=== PATIENT | male | born 1955 | race Hispanic/Latino ===

== ENCOUNTER 2019-06-10 18:50 | Inpatient (IN) | payer OTHER ==
[~2019-06-10] VITALS: Ht 182.9 cm; Wt 135.8 kg
[2019-06-10] MEDS ORDERED: VANCOMYCIN 1GM/NS 250 ML 250 ML IV NR (19:19)
[2019-06-10] MEDS ORDERED: ONDANSETRON HCL INJ 2MG/ML 2ML 2 MG/ML VIAL IV STA (19:26)
[2019-06-10 19:44] LABS: BASOPHILS % 0.4 % (0.0-1.0); EOSINOPHILS # (AUTO) 0.2 (0.0-0.4); EOSINOPHILS % 2.1 % (0.0-6.0); HEMATOCRIT 38.5 % (38.2-49.6); HEMOGLOBIN 12.9 g/dL (14.0-18.0); LYMPHOCYTES # (AUTO) 2.1 (1.0-3.2); LYMPHOCYTES % 20.4 % (18.0-39.1); MEAN CORPUSCULAR HEMOGLOBIN 30.1 pg (28-32); MEAN CORPUSCULAR HGB CONC 33.5 g/dL (31-35); MONOCYTES # (AUTO) 0.9 (0.2-0.8); NEUTROPHILS # (AUTO) 7.1 (2.1-6.9); NEUTROPHILS % 67.7 % (38.7-80.0); PLATELET COUNT 301 x10e3/uL (140-360); RED BLOOD COUNT 4.28 x10e6/uL (4.3-5.7)
[2019-06-10] MEDS: MORPHINE SULFATE INJ 4 MG/ML INJ 1ML IV PRN ×2 (19:51→23:07)
[2019-06-10 20:00] LABS: ALANINE AMINOTRANSFERASE 33 IU/L (0-55); ALBUMIN 3.5 g/dL (3.5-5.0); ALBUMIN/GLOBULIN RATIO 0.9 (0.8-2.0); ALKALINE PHOSPHATASE 120 IU/L (40-150); ANION GAP 17.8 mmol/L (8-16); BLOOD UREA NITROGEN 17 mg/dL (7-26); BUN/CREATININE RATIO 18 (6-25); CARBON DIOXIDE 25 mmol/L (22-29); CHLORIDE 100 mmol/L (98-107); CREATININE, SERUM 0.96 mg/dL (0.72-1.25); EST GLOMERULAR FILTRATION RATE > 60 ML/MIN (60-); GLUCOSE 157 mg/dL (74-118); POTASSIUM 3.8 mmol/L (3.5-5.1); SODIUM 139 mmol/L (136-145)
[2019-06-10] MEDS ORDERED: ONDANSETRON HCL INJ 2MG/ML 2ML 2 MG/ML VIAL IV PRN (20:30)
[2019-06-10] MEDS: CLINDAMYCIN 600MG / 50ML 50 ML IV SCH (20:49)
[2019-06-10] MEDS: SODIUM CHLORIDE 0.9% 1000ML 1,000 ML IV SCH (23:07)
--- NOTE | 2019-06-10 23:48 | Diagnostic Imaging Report ---
X-ray right hand 3 views HISTORY: Pain. COMPARISON: None available. FINDINGS: Bones: No acute displaced fracture. Osseous alignment is within normal limits. Joints: Scattered degenerative changes. No dislocations. Soft tissues: Soft tissue swelling about the hand and fingers. Vascular calcifications. IMPRESSION: No acute radiographic osseous abnormality. No foreign body. Soft tissue swelling about the hand and fingers. Scattered degenerative changes. Signed by: Jose Maradiaga DO on 06/10/2019 11:45 PM
[2019-06-11] MEDS: SODIUM CHLORIDE 0.9% 1000ML 1,000 ML IV SCH ×3 (06:46→20:17)
[2019-06-11 07:12] LABS: BASOPHILS % 0.3 % (0.0-1.0); EOSINOPHILS % 0.4 % (0.0-6.0); HEMATOCRIT 39.1 % (38.2-49.6); HEMOGLOBIN 12.5 g/dL (14.0-18.0); LYMPHOCYTES # (AUTO) 1.6 (1.0-3.2); LYMPHOCYTES % 13.8 % (18.0-39.1); MEAN CORPUSCULAR HEMOGLOBIN 29.8 pg (28-32); MEAN CORPUSCULAR VOLUME 93.1 fL (81-99); MONOCYTES # (AUTO) 1.4 (0.2-0.8); MONOCYTES % 11.9 % (4.4-11.3); NEUTROPHILS # (AUTO) 8.3 (2.1-6.9); NEUTROPHILS % 73.1 % (38.7-80.0); PLATELET COUNT 269 x10e3/uL (140-360); RED CELL DISTRIBUTION WIDTH 13.1 % (11.7-14.4)
[2019-06-11 07:36] LABS: ANION GAP 15.3 mmol/L (8-16); BLOOD UREA NITROGEN 13 mg/dL (7-26); BUN/CREATININE RATIO 15 (6-25); CALCIUM 8.8 mg/dL (8.4-10.2); CARBON DIOXIDE 26 mmol/L (22-29); CHLORIDE 100 mmol/L (98-107); CREATININE, SERUM 0.88 mg/dL (0.72-1.25); EST GLOMERULAR FILTRATION RATE > 60 ML/MIN (60-); GLUCOSE 142 mg/dL (74-118); POTASSIUM 4.3 mmol/L (3.5-5.1); SODIUM 137 mmol/L (136-145)
[2019-06-11] MEDS: MORPHINE SULFATE INJ 4 MG/ML INJ 1ML IV PRN ×3 (08:04→19:45)
[2019-06-11] MEDS: VANCOMYCIN 1GM/NS 250 ML 250 ML IV SCH ×2 (09:05→22:02)
--- NOTE | 2019-06-11 09:58 | Diagnostic Imaging Report ---
EXAM: CT right hand WITHOUT contrast INDICATION: Cellulitis. Swelling. Pain COMPARISON: June 10, 2019 TECHNIQUE: Right hand was scanned utilizing a multidetector helical scanner without administration of IV contrast. Absence of intravenous contrast decreases sensitivity for detection of focal lesions and vascular pathology. Coronal and sagittal reformations were obtained. Routine protocol was performed. IV CONTRAST: None ORAL CONTRAST: None COMPLICATIONS: None RADIATION DOSE: Total DLP: 135 mGy*cm Estimated effective dose: (DLP x 0.015 x size factor) mSv CTDIvol has been reviewed. It is below the limits set by the Radiation Protocol Committee (RPC). Dose modulation, iterative reconstruction, and/or weight based adjustment of the mA/kV was utilized to reduce the radiation dose to as low as reasonably achievable. FINDINGS: No acute fracture, dislocation or evidence of avascular necrosis. Mild scattered degenerative change. No osseous erosion. Small bone fragments at the dorsal aspect of the hand at the level of the proximal third metacarpal likely due to carpal bossing as seen on series 5 image 124 through 129. Moderate soft tissue edema about the hand most pronounced dorsally could be due to cellulitis in the appropriate clinical context. No well-formed drainable fluid collection is seen. No radiopaque foreign body is seen. Scattered vascular calcification. Impression: Moderate soft tissue edema about the hand most pronounced dorsally could be due to cellulitis in the appropriate clinical context. No well-formed drainable fluid collection is seen. Signed by: Dr. Dayton Stack M.D. on 06/11/2019 9:56 AM
[2019-06-11] MEDS: CEFEPIME 2 GM/NS 0.9% 100 ML 100 ML IV SCH ×2 (13:46→17:49)
--- NOTE | 2019-06-11 14:15 | NUR ---
PT RECEIVED FROM ER. RAINEY. EDUCATED PT ABOUT FALL PRECAUTIONS. CALL LIGHT WITH IN EASY REACH. INSTRUCTED PT TO USE CALL LIGHT FOR ALL THE NEEDS. PT VERBALIZED UNDERSTANDING. BED IS LOW AND LOCKED. SIDE RAILS X2. PT DENIES NEEDS AT THIS TIME.
--- NOTE | 2019-06-11 14:20 | History and Physical ---
CHIEF COMPLAINT: Right hand pain, swelling since last 3 days. HISTORY OF PRESENT MEDICAL ILLNESS: A 64-year-old pleasant male with no significant past medical history, was admitted at [facility] with above complaint. The patient was seen in my office yesterday afternoon with above complaints. As per the patient, about 3 days back, he got poked by a deer bone on the tip of his right hand finger and since then, the right hand pain, swelling and redness, started progressively getting worse and hence, the patient came to my office yesterday afternoon. The patient was referred to ER for further care and treatment. At present, the patient is lying comfortably in bed, in no apparent distress. No chest pain. No shortness of breath. No nausea, vomiting, or diarrhea. No abdominal pain. No loss of consciousness. No palpitations. No headaches. No hematemesis. No melena. No hematuria or dysuria. No fever. No cough. No witnessed seizures. PAST MEDICAL HISTORY: None. MEDICATIONS: None. ALLERGIES: NO KNOWN DRUG ALLERGIES. PAST SURGICAL HISTORY: None. SOCIAL HISTORY: No smoking, alcohol +6 pegs per day. No illicit drug use. Lives with family. FAMILY HISTORY: Noncontributory. REVIEW OF SYSTEMS: As per HPI. PHYSICAL EXAMINATION: GENERAL: The patient is alert, awake, and oriented x3, in no apparent distress, sitting in chair. VITAL SIGNS: Temperature is 98, pulse is 90 per minute, respiratory rate 18 per minute, blood pressure is 159/86, and saturation is 99%. SKIN: No cyanosis. No icterus. No pallor. HEENT: Normocephalic and atraumatic. PERRLA plus. NECK: Soft, supple. No JVD. No carotid bruit. No lymphadenopathy. LUNGS: Air entry bilaterally equal. HEART: S1, S2. No murmur, gallop, or rub. ABDOMEN: Soft and nontender. Bowel sounds plus. TOOL MECHANIC: Alert, awake, and oriented x3. No focal deficit. EXTREMITIES: No cyanosis. No clubbing. No edema. Peripheral pulses present. No calf pain. Right hand, severe swelling, tenderness plus. LABORATORY DATA: Sodium 137, potassium 4.3, chloride 100, bicarb 26, BUN 13, creatinine 0.8, glucose 154 and 142. White count 11.3, hemoglobin 12.5, hematocrit 39, and platelets 269. X-ray hand, no acute radiographic abnormality. No foreign body. Soft tissue swelling about the hand and fingers. Scattered degenerative changes. ASSESSMENT: Severe right hand cellulitis. PLAN: Admit the patient to medical floor, IV vancomycin and IV clindamycin, panculture. Infectious Disease consult, Dr. Sharma. Hand surgeon, Dr. Calabrese consult. We will get CT of right hand for the pain management. Further care and treatment as per clinical course of the patient in the hospital. MD ISELA Terry/MODL /[id number]
[2019-06-11 15:00] VITALS: BP 174/94
[2019-06-11 15:49] VITALS: BP 134/94
[2019-06-11 15:55] VITALS: BP 164/94
--- NOTE | 2019-06-11 16:00 | NUR ---
PAGED DR. HERZOG REGARDING PT TEMP 100.5 AND BP 164/94. WAITING FOR THE RESPONSE FROM THE
[2019-06-11] MEDS: AMLODIPINE BESYLATE 5 MG TAB PO SCH (16:37)
[2019-06-11] MEDS: ACETAMINOPHEN 325 MG TAB PO PRN (16:38)
--- NOTE | 2019-06-11 17:26 | Consultation ---
DATE OF CONSULTATION: REASON FOR CONSULTATION: Cellulitis of the right hand. HISTORY OF PRESENT ILLNESS: This patient, who is a very pleasant 64-year-old male with history of obesity, hypertension. He was skinning a deer 3 days ago with bone injury to his right middle finger, started to have redness and swelling in his hand, going all the way up to his arm and shoulder, not feeling well, with pain, fever, and chills. The patient came to the emergency room where he was admitted. I was asked to see him. PAST MEDICAL HISTORY: Otherwise, as above. PAST SURGICAL HISTORY: Otherwise, as above. SOCIAL HISTORY: There is no smoking, drug abuse, or alcohol abuse. FAMILY HISTORY: Otherwise unremarkable. REVIEW OF SYSTEMS: HEENT: There is no headache, visual changes, or hearing changes. GI: There is no nausea. No vomiting. No diarrhea. CARDIAC: There is no arrhythmia. NEURO: No seizure activity. SKIN: There are no rashes. PHYSICAL EXAMINATION: GENERAL: He is currently alert, oriented, does not seem to be in acute distress. VITAL SIGNS: Stable, currently afebrile. HEENT: Not icteric. NECK: Supple. No JVD. No lymphadenopathy, no thyromegaly. CHEST: Clear bilateral. HEART: S1, S2. No S3, S4, or murmur. ABDOMEN: Soft. Bowel sounds present. No tenderness. No hepatosplenomegaly. EXTREMITIES: Hand, there is erythema and edema involving all the way to the shoulder. No bullous lesions. IMPRESSION: Cellulitis of the hand and arm after injury with bone from skinning a deer, pathogen be gram-negative Pseudomonas, Aeromonas, gram-positive Staph aureus and MRSA. RECOMMENDATIONS: Agree with vancomycin. We will adjust per his weight. We will get a MRI of the hand. We will keep the arm elevated. Follow vancomycin trough. We will obtain blood cultures. Consider evaluation by Hand Surgery, Plastic surgery. We will discuss with Dr. Duke. MD ANNIE Miramontes/EREN /[id number]
--- NOTE | 2019-06-11 18:59 | NUR ---
BEDSIDE SHIFT REPORT GIVEN TO THE ROUSTABOUT HEAD RN. PT DENIED FURTHER NEEDS.
[2019-06-11 19:18] VITALS: BP 166/87
[2019-06-11 21:00] VITALS: BP 166/87
[2019-06-11] MEDS: CLINDAMYCIN 600MG / 50ML 50 ML IV SCH (21:18)
[2019-06-12] VITALS (8 sets, daily range): BP systolic 146–178; BP diastolic 71–88
[2019-06-12] MEDS: CEFEPIME 2 GM/NS 0.9% 100 ML 100 ML IV SCH ×3 (02:32→17:04)
[2019-06-12] MEDS: ACETAMINOPHEN 325 MG TAB PO PRN (02:33)
[2019-06-12] MEDS: SODIUM CHLORIDE 0.9% 1000ML 1,000 ML IV SCH ×3 (05:06→18:08)
[2019-06-12 05:15] LABS: BASOPHILS % 0.3 % (0.0-1.0); EOSINOPHILS # (AUTO) 0.1 (0.0-0.4); EOSINOPHILS % 0.5 % (0.0-6.0); HEMATOCRIT 35.8 % (38.2-49.6); HEMOGLOBIN 11.3 g/dL (14.0-18.0); LYMPHOCYTES % 15.2 % (18.0-39.1); MEAN CORPUSCULAR HEMOGLOBIN 29.6 pg (28-32); MEAN CORPUSCULAR HGB CONC 31.6 g/dL (31-35); MEAN CORPUSCULAR VOLUME 93.7 fL (81-99); MONOCYTES # (AUTO) 1.9 (0.2-0.8); MONOCYTES % 14.4 % (4.4-11.3); NEUTROPHILS # (AUTO) 9.3 (2.1-6.9); NEUTROPHILS % 68.9 % (38.7-80.0); PLATELET COUNT 244 x10e3/uL (140-360); RED BLOOD COUNT 3.82 x10e6/uL (4.3-5.7); RED CELL DISTRIBUTION WIDTH 13.2 % (11.7-14.4)
[2019-06-12 05:39] LABS: ALANINE AMINOTRANSFERASE 21 IU/L (0-55); ALBUMIN 3.2 g/dL (3.5-5.0); ANION GAP 14.3 mmol/L (8-16); BLOOD UREA NITROGEN 11 mg/dL (7-26); BUN/CREATININE RATIO 12 (6-25); CALCIUM 8.7 mg/dL (8.4-10.2); CARBON DIOXIDE 28 mmol/L (22-29); CHLORIDE 98 mmol/L (98-107); CREATININE, SERUM 0.94 mg/dL (0.72-1.25); EST GLOMERULAR FILTRATION RATE > 60 ML/MIN (60-); GLUCOSE 147 mg/dL (74-118); POTASSIUM 4.3 mmol/L (3.5-5.1); SODIUM 136 mmol/L (136-145)
[2019-06-12 05:40] LABS: ALBUMIN/GLOBULIN RATIO 0.8 (0.8-2.0); ALKALINE PHOSPHATASE 76 IU/L (40-150)
--- NOTE | 2019-06-12 07:00 | NUR ---
BEDSIDE SHIFT REPORT RECEIVED FROM WELDING INSTRUCTOR RN. PT DENIES NEEDS AT THIS TIME.
[2019-06-12] MEDS: CLINDAMYCIN 600MG / 50ML 50 ML IV SCH ×2 (09:47→21:46)
[2019-06-12] MEDS: AMLODIPINE BESYLATE 5 MG TAB PO SCH (09:47)
[2019-06-12] MEDS: VANCOMYCIN 1GM/NS 250 ML 250 ML IV SCH ×2 (09:47→22:38)
[2019-06-12] MEDS: METHYLPREDNISOLONE SOD SUCC 40 MG/ML VIAL 1ML IV SCH ×2 (10:19→21:46)
[2019-06-12] MEDS ORDERED: LIDOCAINE 1% 5ML-MPF INJ ONE (11:00)
[2019-06-12] MEDS: NAPROXEN 250 MG TAB PO SCH ×2 (11:19→17:03)
--- NOTE | 2019-06-12 11:39 | Consultation ---
DATE OF CONSULTATION: 06/12/2019 Physician requesting the consultation is Dr. Juanjose Duke. Consultation is requested of Keon Calabrese MD, Hand Surgery. HISTORY OF PRESENT ILLNESS: This patient is a 64-year-old right-hand dominant male, who was admitted to the emergency room on June 10 at approximately 6 p.m. The patient states that his right hand had been swelling and causing significant amount of discomfort over the prior 2 to 3 days from admission. The only antecedent history is that the patient states that while hunting and skinning a deer, he was struck by a deer bone on the tip of the right long finger. The patient states that approximately 48 to 72 hours later, the right hand swelled and he came to the emergency room. He was admitted and started on intravenous antibiotics, clindamycin, and vancomycin. Since the time of the admission, the patient's hand has remained swollen and painful, and consultation is now requested for possible surgical drainage. PAST MEDICAL HISTORY: Notable for gout. PAST SURGICAL HISTORY: Noncontributory. PERTINENT PHYSICAL EXAMINATION: VITAL SIGNS: Today, the patient is afebrile and his vital signs are stable. EXTREMITIES: The right hand shows swelling over the dorsal aspects from the wrist to the MP joints. There is no erythema. There does not appear to be any lymphangitis. There is no fluctuance. The exam of the tip of the right long finger reveals a 1 to 2 mm eschar on the distal volar tip. It is dry. There is no drainage. There is no surrounding erythema. PERTINENT IMAGING STUDIES: The x-ray of the hand is negative for any acute or chronic bony abnormalities. The CT scan just shows diffuse soft tissue swelling of the dorsal soft tissues. However, there was no drainable or any type of fluid collection or peritendinous process. LABORATORY DATA: His white blood cell count on the admission was 10.42, yesterday was 11.34, and today on the , it is 13.46. IMPRESSION: I believe the patient may have an exacerbation of his gout. This does not appear to have a clinical picture consistent with an infectious process. I recommend that the patient have levels drawn and be started on anti-gout medication. Your expression of professional confidence is greatly appreciated. MD LESLIE Olson/MODL /[id number]
--- NOTE | 2019-06-12 14:11 | Progress Note ---
DATE: SUBJECTIVE: Mr. Jorgensen is feeling about the same, but looking at his hand, I think is slightly better. He was already seen by Dr. Keon Calabrese. The patient is seen and examined. CAT scan reviewed. Chart reviewed. PHYSICAL EXAMINATION: EXTREMITIES: He still has diffuse edema. I think the patient has cellulitis, but I am concerned about the severity of the pain. The CAT scan does not show abscess. I discussed with Dr. Calabrese. We are going to proceed with aspiration to see if we get bacteria. He has had concerns that he may have gram-negative Aeromonas, Pseudomonas versus streptococcus. After the patient was struck by a bone while he was cleaning the deer 3 days ago and that is when it started from, so I do not think it is gout. I think for infection. Continue with the current choice of antibiotic, to see if we can reduce the inflammation and since he is in severe pain and also I am going to repeat the MRI of the hand and wrist soon. Then in few days, we will follow. MD ANNIE Miramontes/EREN /[id number]
[2019-06-13] VITALS (10 sets, daily range): BP systolic 138–181; BP diastolic 85–100
[2019-06-13] MEDS: CEFEPIME 2 GM/NS 0.9% 100 ML 100 ML IV SCH ×3 (02:00→17:29)
[2019-06-13] MEDS: NAPROXEN 250 MG TAB PO SCH ×2 (02:51→17:29)
[2019-06-13 05:10] LABS: BASOPHILS % 0.1 % (0.0-1.0); HEMATOCRIT 36.2 % (38.2-49.6); HEMOGLOBIN 11.4 g/dL (14.0-18.0); LYMPHOCYTES # (AUTO) 0.9 (1.0-3.2); LYMPHOCYTES % 5.6 % (18.0-39.1); MEAN CORPUSCULAR HEMOGLOBIN 29.8 pg (28-32); MEAN CORPUSCULAR HGB CONC 31.5 g/dL (31-35); MEAN CORPUSCULAR VOLUME 94.5 fL (81-99); MONOCYTES # (AUTO) 0.7 (0.2-0.8); MONOCYTES % 4.4 % (4.4-11.3); PLATELET COUNT 275 x10e3/uL (140-360); RED BLOOD COUNT 3.83 x10e6/uL (4.3-5.7); RED CELL DISTRIBUTION WIDTH 12.9 % (11.7-14.4)
[2019-06-13] MEDS ORDERED: ONDANSETRON HCL 4 MG ORAL DISINTEGRATING TAB PO PRN (07:30)
[2019-06-13] MEDS: PANTOPRAZOLE SOD 40 MG TABEC PO SCH (08:43)
[2019-06-13] MEDS: CLINDAMYCIN 600MG / 50ML 50 ML IV SCH ×2 (08:43→22:07)
[2019-06-13] MEDS: METHYLPREDNISOLONE SOD SUCC 40 MG/ML VIAL 1ML IV SCH ×2 (08:43→22:07)
[2019-06-13] MEDS: AMLODIPINE BESYLATE 5 MG TAB PO SCH (08:45)
--- NOTE | 2019-06-13 09:00 | NUR ---
Santos Rodgers aware WBC 16.81 today and 13.46 on 06/12/19
[2019-06-13] MEDS: VANCOMYCIN 1GM/NS 250 ML 250 ML IV SCH ×2 (09:30→23:20)
--- NOTE | 2019-06-13 16:00 | NUR ---
Paged for BP 176/92. Awaiting for call back
--- NOTE | 2019-06-13 16:50 | NUR ---
Repaged for BP 176/92. Awaiting for call back
--- NOTE | 2019-06-13 19:00 | NUR ---
RECEIVED PATIENT IN BEDSIDE SHIFT REPORT. PATIENT SITTING ON SIDE OF BED WITH R HAND ELEVATED ON PILLOW. NO PAIN REPORTED. NO S&S OF DISTRESS NOTED. BED LOCKED IN LOWEST POSITION, SIDE RIALS UPX2, CALL LIGHT IN REACH.
--- NOTE | 2019-06-13 19:14 | NUR ---
Report given to oncoming nurse of patient's status. No s/s of acute distress noted. Side rails upx2, call light within reach.
--- NOTE | 2019-06-13 21:15 | NUR ---
DR. HERZOG PAGED TO NOTIFY HIM OF PATIENT'S ELEVATED BLOOD PRESSURE OF 176/100. WAITING FOR CALL BACK/ORDERS.
[2019-06-13] MEDS ORDERED: SODIUM CHLORIDE 0.9% 250ML 250 ML ONE (21:47)
[2019-06-13] MEDS: CLONIDINE HCL 0.1 MG TAB PO PRN (22:32)
[2019-06-14] VITALS (8 sets, daily range): BP systolic 157–196; BP diastolic 97–111
[2019-06-14] MEDS: CEFEPIME 2 GM/NS 0.9% 100 ML 100 ML IV SCH ×3 (02:42→18:02)
--- NOTE | 2019-06-14 07:09 | NUR ---
bedside shift report received from PM RN; pt sitting up in bed, awake, alert, oriented x3. no signs of distress.
[2019-06-14] MEDS: NAPROXEN 250 MG TAB PO SCH ×2 (08:42→18:01)
[2019-06-14] MEDS: PANTOPRAZOLE SOD 40 MG TABEC PO SCH (08:42)
[2019-06-14] MEDS: AMLODIPINE BESYLATE 5 MG TAB PO SCH (08:43)
[2019-06-14] MEDS: CLINDAMYCIN 600MG / 50ML 50 ML IV SCH ×2 (08:47→20:37)
[2019-06-14] MEDS: METHYLPREDNISOLONE SOD SUCC 40 MG/ML VIAL 1ML IV SCH (08:48)
[2019-06-14] MEDS: VANCOMYCIN 1GM/NS 250 ML 250 ML IV SCH ×2 (10:08→21:30)
[2019-06-14] MEDS: CLONIDINE HCL 0.1 MG TAB PO PRN ×2 (12:00→15:58)
--- NOTE | 2019-06-14 15:30 | NUR ---
paged Dr. Duke regarding high blood pressure 195/111; no improvement after receiving Clonidine. paging for new orders. awaiting callback.
--- NOTE | 2019-06-14 15:55 | NUR ---
Dr. Duke states give pt another 0.1 mg Clonidine for high BP then recheck in 1 hour.
--- NOTE | 2019-06-14 18:04 | Progress Note ---
DATE: SUBJECTIVE: Mr. Jorgensen is feeling better. REVIEW OF SYSTEMS: At the present time: HEENT: Negative. PULMONARY: Negative. EXTREMITIES: He can move the arm and the hand better. PHYSICAL EXAMINATION: GENERAL: He is currently alert, oriented, does not seem in acute distress. VITAL SIGNS: Stable, currently afebrile. HEENT: Not icteric. NECK: Supple. CHEST: Clear. IMPRESSION: Cellulitis after skinning a deer, clinically better. There is a question if this is gout, however, the progression to all tissue goes against it, but time will tell. From infectious disease point of view, since he is doing good, could be discharged home. We will discharge home with Cipro 500 mg p.o. b.i.d. to see me back in 2 weeks. Discussed with the patient at length. Answered all his question. MD ANNIE Miramontes/EREN /[id number]
[2019-06-14] MEDS ORDERED: AMLODIPINE BESYLATE 5 MG TAB PO ONE (21:00)
--- NOTE | 2019-06-14 21:30 | NUR ---
Assessment done.no resp.distress.no pain voiced.aaox4.ambulates .voided in the rest room.bed locked and in lowest position.phone and call light within reach.instructed to call for assistance as needed.
[2019-06-15] VITALS: BP 168/101
[2019-06-15] MEDS: CEFEPIME 2 GM/NS 0.9% 100 ML 100 ML IV SCH ×2 (01:50→09:59)
[2019-06-15 04:00] VITALS: BP 153/102
--- NOTE | 2019-06-15 07:00 | NUR ---
Bed side shift report given to oncoming Rn.stable condition.
[2019-06-15] MEDS: PANTOPRAZOLE SOD 40 MG TABEC PO SCH (07:30)
[2019-06-15 08:18] VITALS: BP 166/97
[2019-06-15 08:22] VITALS: BP 166/97
[2019-06-15] MEDS: VANCOMYCIN 1GM/NS 250 ML 250 ML IV SCH (09:00)
[2019-06-15] MEDS: CLINDAMYCIN 600MG / 50ML 50 ML IV SCH (09:00)
[2019-06-15] MEDS: NAPROXEN 250 MG TAB PO SCH (09:59)
[2019-06-15] MEDS: AMLODIPINE BESYLATE 5 MG TAB PO SCH (09:59)
[2019-06-15] MEDS ORDERED: NORVASC5 MG PO (10:07)
[2019-06-15] MEDS ORDERED: NAPROXEN250 MG PO (10:08)
[2019-06-15] MEDS ORDERED: PANTOPRAZOLE SO40 MG PO (10:08)
[2019-06-15] MEDS ORDERED: CIPRO500 MG PO (10:08)
== END 2019-06-15 13:51 | disposition home or self-care (01) | DRG 603 ==
LOC: ER 18:50 → ERHOLD 20:19 → MED/SURG2 06-11 14:20 → OBSVTOIN 06-12 08:43
PROVIDERS: ADMIT Internal Medicine; ATTEND Internal Medicine
PROC: 0X9J3ZX Drainage of Right Hand, Percutaneous Approach, Diagnostic (ICD-10-PCS; principal; 2019-06-12)
DX: L03.113 Cellulitis of right upper limb (principal); Z68.41 Body mass index [BMI] 40.0-44.9, adult; I10 Essential (primary) hypertension; E66.01 Morbid (severe) obesity due to excess calories; E11.9 Type 2 diabetes mellitus without complications; M10.9 Gout, unspecified; S61.232A Puncture wound without foreign body of right middle finger without damage to nail, initial encounter; W26.8XXA Contact with other sharp object(s), not elsewhere classified, initial encounter; Y92.89 Other specified places as the place of occurrence of the external cause
CPT/HCPCS: 36415; 80048; 80053; 80202; 82948; 84550; 85025; 87040; 87071; 87205; 99284; G0378; J2270; J2405; J2920; J3370; J7030; J7050